=== PATIENT | male | born 1990 | race Caucasian/White ===

== ENCOUNTER 2018-06-28 18:00 | Emergency (ER) | payer SELFPAY ==
[~2018-06-28] VITALS: Ht 175.3 cm; Wt 81.6 kg
[2018-06-28 18:07] VITALS: Ht 175.3 cm; Wt 81.6 kg
[2018-06-28 18:51] LABS: CARBON DIOXIDE 28.4 mmol/L (21-32); CHLORIDE SERUM 103 mmol/L (98-107); CREATININE SERUM 1.2 mg/dL (0.7-1.3); GFR1 > 60 mL/min; GLUCOSE SERUM 110 mg/dL (74-106); POTASSIUM SERUM 4.8 mmol/L (3.5-5.1); SODIUM SERUM 138 mmol/L (136-145)
[2018-06-28 18:56] LABS: ALBUMIN 3.7 g/dL (3.4-5.0); ALKALINE PHOSPHATASE 57 U/L (46-116); ALT/SGPT 77 U/L (16-63); AST/SGOT 43 U/L (15-37); BILIRUBIN TOTAL 0.6 mg/dL (0.20-1.00); LIPASE 124 IU/L (73-393)
[2018-06-28 18:57] LABS: BASOPHIL % 0.1 % (0-2); PLATELET COUNT 345 x10^3mcL (130-400)
[2018-06-28 18:58] LABS: TOTAL PROTEIN, SERUM 8.5 g/dL (6.4-8.2)
[2018-06-28 18:59] LABS: RED CELL DISTRIBUTION WIDTH 14.6 % (11.5-14.5)
[2018-06-28 19:10] LABS: UA SPECIFIC GRAVITY 1.025 (1.005-1.035); microscopic required? YES; urine erythrocyte TRACE (NEGATIVE)
[2018-06-28 21:58] VITALS: BP 124/74
== END 2018-06-28 21:58 | disposition home or self-care (01) ==
LOC: ED 18:00
PROVIDERS: Emergency Medicine
DX: R11.10 Vomiting, unspecified (principal); R19.7 Diarrhea, unspecified; R10.84 Generalized abdominal pain
CPT/HCPCS: J2405; J3010; J7030; Q9967

== ENCOUNTER 2019-04-22 12:30 | Emergency (ER) | payer MEDICAID ==
[~2019-04-22] VITALS: Ht 175.3 cm; Wt 83.6 kg
[2019-04-22 12:42] VITALS: BP 136/64; Ht 175.3 cm; Wt 83.6 kg
== END 2019-04-22 14:11 | disposition home or self-care (01) ==
LOC: ED 12:30
DX: R11.2 Nausea with vomiting, unspecified (principal); R19.7 Diarrhea, unspecified; S60.512A Abrasion of left hand, initial encounter; S60.511A Abrasion of right hand, initial encounter; F17.210 Nicotine dependence, cigarettes, uncomplicated; F11.10 Opioid abuse, uncomplicated; Z86.19 Personal history of other infectious and parasitic diseases; X58.XXXA Exposure to other specified factors, initial encounter; Y93.89 Activity, other specified; Y92.89 Other specified places as the place of occurrence of the external cause; Y99.8 Other external cause status
CPT/HCPCS: 99406